=== PATIENT | female | born 1995 | race Two or more races ===

== ENCOUNTER 2019-12-24 13:06 | Inpatient (IN) | payer OTHER ==
[~2019-12-24] VITALS: Ht 160 cm; Wt 76.8 kg
[2019-12-24] MEDS ORDERED: SODIUM CITRATE/CITRIC ACID 30 ML UDC PO ONE (13:30)
[2019-12-24] MEDS ORDERED: METOCLOPRAMIDE 5 MG/ML, 2ML IV ONE (13:30)
[2019-12-24] MEDS ORDERED: LACTATED RINGERS 1,000 ML IVBOLUS ONE (13:30)
[2019-12-24] MEDS ORDERED: OXYTOCIN 30U/ 0.9% NaCL 500ML 500 ML ONE (13:31)
[2019-12-24] MEDS ORDERED: METOCLOPRAMIDE 5 MG/ML, 2ML ONE (13:31)
[2019-12-24] MEDS ORDERED: NEWBORN KIT ONE (13:32)
[2019-12-24] MEDS: LACTATED RINGERS 1,000 ML IV SCH ×6 (14:00→21:23)
[2019-12-24 14:06] LABS: BASOPHILS # (AUTO) 0.03 x10^3/uL (0-0.1); BASOPHILS % (AUTO) 0 % (0-1); EOSINOPHILS # (AUTO) 0.01 x10^3/uL (0-0.4); EOSINOPHILS % (AUTO) 0 % (1-7); LYMPHOCYTES # (AUTO) 1.65 x10^3/uL (1-3.4); LYMPHOCYTES % (AUTO) 24 % (22-44); MD NO; MEAN CORPUSCULAR HEMOGLOBIN 33.7 pg (27.0-34.8); MEAN CORPUSCULAR HGB CONC 33.3 g/dL (32.4-35.8); MEAN CORPUSCULAR VOLUME 101.4 fL (80-100); MEAN PLATELET VOLUME 9.6 fL (7.4-10.4); MONOCYTES # (AUTO) 0.53 x10^3/uL (0.2-0.8); MONOCYTES % (AUTO) 8 % (2-9); NEUTROPHILS # (AUTO) 4.81 x10^3/uL (1.8-6.8); NEUTROPHILS % (AUTO) 68 % (42-75); PLATELET COUNT 162 x10^3/uL (130-400); RED BLOOD COUNT 3.79 x10^6/uL (3.82-5.3); RED CELL DISTRIBUTION WIDTH 13.2 % (9.6-15.2)
[2019-12-24] MEDS ORDERED: FENTANYL PF 100 MCG/2ML ONE (15:56)
[2019-12-24] MEDS ORDERED: CEFAZOLIN 1,000 MG ONE ×2 (15:58)
[2019-12-24] MEDS ORDERED: OXYTOCIN 10 UNITS/ML, 1ML ONE ×4 (15:59)
[2019-12-24] MEDS ORDERED: KETOROLAC 30 MG/1 ML ONE (15:59)
[2019-12-24] MEDS ORDERED: EPHEDRINE 50 MG/ML, 1ML ONE (16:54)
[2019-12-24] MEDS ORDERED: MISOPROSTOL 200 MCG TABLET ONE (17:12)
[2019-12-24] MEDS ORDERED: morphine SULFATE 10 MG/ML, 1ML IVPush PRN (18:00)
[2019-12-24] MEDS ORDERED: DIPHENHYDRAMINE 50 MG/ML, 1ML IVPush PRN (18:00)
[2019-12-24] MEDS ORDERED: ONDANSETRON 2MG/ML, 2ML IVPush PRN (18:00)
[2019-12-24] MEDS ORDERED: EPHEDRINE 50 MG/ML, 1ML IM PRN (18:00)
[2019-12-24] MEDS ORDERED: MEPERIDINE/PF 25MG/0.5ML IVPush PRN (18:00)
[2019-12-24] MEDS ORDERED: FENTANYL PF 100 MCG/2ML IV PRN (18:00)
[2019-12-24] MEDS ORDERED: OXYcodone 5 MG/5 ML ORAL.SOL UDC PO PRN (18:00)
[2019-12-24] MEDS ORDERED: EPHEDRINE 50 MG/ML, 1ML IVPush PRN (18:00)
[2019-12-24] MEDS: OXYTOCIN 30U/ 0.9% NaCL 500ML 500 ML IV SCH ×2 (18:22→20:14)
[2019-12-24 19:45] VITALS: BP 95/61
[2019-12-24] MEDS ORDERED: OXYcodone/APAP 5/325MG TABLET PO PRN (20:30)
[2019-12-24] MEDS ORDERED: IBUPROFEN 600 MG TABLET PO PRN (20:30)
[2019-12-24] MEDS ORDERED: KETOROLAC 30 MG/1 ML IV PRN (20:30)
[2019-12-24] MEDS ORDERED: MEASLES,MUMPS&RUBELLA VACC/PF 0.5 ML SQ-VACC PRN (20:30)
[2019-12-24] MEDS ORDERED: DOCUSATE 100 MG CAPSULE PO PRN (20:30)
[2019-12-24] MEDS ORDERED: DIPH,PERTUSS(ACELL),TET VAC/PF NC IM-VACC PRN (20:30)
[2019-12-24] MEDS ORDERED: ONDANSETRON 2MG/ML, 2ML IV PRN (20:30)
[2019-12-24] MEDS ORDERED: SIMETHICONE 80 MG CHEW TAB PO PRN (20:30)
[2019-12-24] MEDS: OXYcodone/APAP 5/325MG TABLET PO PRN (22:16)
[2019-12-24] MEDS: KETOROLAC 30 MG/1 ML IV SCH (23:18)
[2019-12-25 00:15] VITALS: BP 97/62
[2019-12-25] MEDS: LACTATED RINGERS 1,000 ML IV SCH ×5 (00:34→06:14)
[2019-12-25 00:58] LABS: BASOPHILS # (AUTO) 0.04 x10^3/uL (0-0.1); BASOPHILS % (AUTO) 0 % (0-1); EOSINOPHILS # (AUTO) 0.01 x10^3/uL (0-0.4); EOSINOPHILS % (AUTO) 0 % (1-7); LYMPHOCYTES # (AUTO) 1.95 x10^3/uL (1-3.4); LYMPHOCYTES % (AUTO) 20 % (22-44); MD NO; MEAN CORPUSCULAR HEMOGLOBIN 32.6 pg (27.0-34.8); MEAN CORPUSCULAR HGB CONC 32.8 g/dL (32.4-35.8); MEAN CORPUSCULAR VOLUME 99.4 fL (80-100); MEAN PLATELET VOLUME 9.9 fL (7.4-10.4); MONOCYTES # (AUTO) 0.96 x10^3/uL (0.2-0.8); MONOCYTES % (AUTO) 10 % (2-9); NEUTROPHILS # (AUTO) 6.76 x10^3/uL (1.8-6.8); NEUTROPHILS % (AUTO) 70 % (42-75); PLATELET COUNT 150 x10^3/uL (130-400); RED BLOOD COUNT 3.81 x10^6/uL (3.82-5.3); RED CELL DISTRIBUTION WIDTH 13.1 % (9.6-15.2)
[2019-12-25] MEDS: OXYTOCIN 30U/ 0.9% NaCL 500ML 500 ML IV SCH ×2 (02:34→06:14)
[2019-12-25 04:17] VITALS: BP 90/50
[2019-12-25] MEDS: KETOROLAC 30 MG/1 ML IV SCH ×4 (05:07→23:23)
[2019-12-25] MEDS: OXYcodone/APAP 5/325MG TABLET PO PRN ×4 (05:40→18:13)
[2019-12-25 07:00] VITALS: BP 90/57
[2019-12-25] MEDS ORDERED: PRENATAL VIT/IRON/FA 1 EACH TABLET PO SCH (09:00)
[2019-12-25] MEDS: PRENATAL VIT/IRON/FA 1 EACH TABLET PO SCH (09:41)
[2019-12-25] MEDS: DOCUSATE 100 MG CAPSULE PO PRN ×2 (09:41→23:23)
[2019-12-25] MEDS: SIMETHICONE 80 MG CHEW TAB PO PRN (09:41)
[2019-12-25 11:38] VITALS: BP 101/69
[2019-12-25 16:10] VITALS: BP 97/65
[2019-12-25] MEDS ORDERED: DIPH,PERTUSS(ACELL),TET VAC/PF NC IM-VACC ONE (19:00)
[2019-12-25 19:33] VITALS: BP 100/69
[2019-12-26] MEDS: KETOROLAC 30 MG/1 ML IV SCH ×2 (05:08→11:23)
[2019-12-26] MEDS: SIMETHICONE 80 MG CHEW TAB PO PRN (06:18)
[2019-12-26] MEDS: OXYcodone/APAP 5/325MG TABLET PO PRN ×2 (06:18→11:23)
[2019-12-26 07:30] VITALS: BP 102/72
[2019-12-26] MEDS: PRENATAL VIT/IRON/FA 1 EACH TABLET PO SCH (09:32)
[2019-12-26] MEDS: DOCUSATE 100 MG CAPSULE PO PRN (09:32)
[2019-12-26] MEDS ORDERED: DIPH,PERTUSS(ACELL),TET VAC/PF NC IM-VACC ONE (10:02)
[2019-12-26] MEDS ORDERED: OXYC-302 PO (13:22)
[2019-12-26] MEDS ORDERED: IBUP-1222 PO (13:22)
[2019-12-26] MEDS ORDERED: SENN-92 PO (13:22)
== END 2019-12-26 17:00 | disposition home or self-care (01) | DRG 787 ==
LOC: EDIP 13:06 → LDIP 13:09 → 2NW 20:11
PROVIDERS: ADMIT Obstetrics & Gynecology; ATTEND Obstetrics & Gynecology
PROC: 10D00Z1 Extraction of Products of Conception, Low, Open Approach (ICD-10-PCS; principal; 2019-12-24)
DX: O34.211 Maternal care for low transverse scar from previous cesarean delivery (principal); O41.03X0 Oligohydramnios, third trimester, not applicable or unspecified; O77.0 Labor and delivery complicated by meconium in amniotic fluid; Z37.0 Single live birth; Z3A.38 38 weeks gestation of pregnancy; Z20.828 Contact with and (suspected) exposure to other viral communicable diseases; O36.5930 Maternal care for other known or suspected poor fetal growth, third trimester, not applicable or unspecified
CPT/HCPCS: 36415; 82803; 85025; 86592; 86850; 86900; 87635; 88307; 90715; G0378; J0690; J1885; J3010; J2590; J2765; J7120